=== PATIENT | male | born 1945 | race Caucasian/White ===

== ENCOUNTER → 2016-12-07 | Outpatient (CLI) | payer MEDICARE, BC ==
[~2016-12-07] MED LIST: ACETAMINOPHEN PO; ACETAMINOPHEN500 M3 PO; ALLERGY RELIEF10 M1 PO; AMLODIPINE BESY10 MG PO; ASPIRIN PO; ASPIRIN81 M2 PO; CARTIA XT PO; CENTURY CARDIO1 EACH PO; CHANTIX1 MG PO; CLOPIDOGREL75 MG PO; COZAAR25 MG PO; DARVOCET-N 1001 TAB; ELECTROLYTE PO; FERRO-TIME325 MG PO; FLOMAX0.4 M1 PO; GAS-X166 MG; HYDRALAZINE HCL25 MG PO; HYDROCODON-ACE1 EAC5 PO; LIPITOR20 MG PO; LOW DOSE ASPIRI81 M2 PO; MAG-OXIDE400 MG PO; MAGOX 400400 MG PO; MULTI VITAMIN1 EACH PO; NEXIUM; NORCO 10-325 TA1 TAB PO; NORVASC PO; NORVASC10 MG PO; PAIN RELIEVER500 M4 PO; PANTOPRAZOLE SO40 MG PO; PEG PO; PLAVIX PO; PRINIVIL40 MG PO; PROTONIX PO; SOD BICARBONATE PO; VICODIN PO; ZESTRIL40 MG PO
--- NOTE | ~2016-12-07 | US38 ---
[facility] A Service of [facility] & [facility] RADIOLOGY TEXT RESULTS PATIENT: CHRISTY MANZANO LOCATION: CNIV : 43 UNIT #: [id number] AGE: [address]: Jeferson Allen MD SEX: M ORDER DR: [id number] [facility] [address] [place], [place] [address] [id number] O MR#: [id number] Acc #: [id number] NAME: CHRISTY MANZANO : 1945 SEX: M STUDY DATE/TIME: 12/07/2016 10:36 UNIT: CNIV ROOM: STUDY DESCRIPTION: US Carotid W/Doppler Unilatera Attending Physician: Jeferson Allen M.D. Referring Physician: Jeferson Allen M.D. Ordering Physician: Jeferson Allen M.D. Primary Care Physician: Drake Mcdonald M.D. MEDICAL IMAGING REPORT This report is preliminary unless electronic signature is present EXAM Right carotid duplex scan date of examination 12/07/2016 HISTORY Recent right carotid endarterectomy. FINDINGS The right common carotid artery has no significant plaque. The right internal and external carotid arteries are patent without plaque. Peak systolic velocity in the mid right internal carotid artery is 88 cm/sec with an end diastolic velocity of 26 cm/sec. The ICA/CCA ratio on the right is 1.29. Peak systolic velocity in the right external carotid artery is 135 cm/sec. The right vertebral artery is patent with antegrade flow. IMPRESSION Normal examination of the right internal and external carotid artery. Dictated by... Kristian Henriquez M.D. THIS IS AN ELECTRONICALLY VERIFIED REPORT Kristian Henriquez M.D. at 12/07/2016 2:01 PM DAY/yumiko TD: 12/07/2016 13:48 JOB #: [id number] MEDICAL IMAGING REPORT Page 1 of 1 COPY
== END | disposition home or self-care (01) ==
LOC: CCAT 09:56
DX: I65.23 Occlusion and stenosis of bilateral carotid arteries (principal)
CPT/HCPCS: 93882

== ENCOUNTER → 2016-12-12 | Outpatient (CLI) | payer MEDICARE, BC | END | disposition home or self-care (01) | LOC: CSSDAY 10:29 | DX: N18.9 Chronic kidney disease, unspecified (principal); D63.1 Anemia in chronic kidney disease; Z79.899 Other long term (current) drug therapy | CPT/HCPCS: 96374; Q0138 ==

== ENCOUNTER → 2016-12-21 | Outpatient (CLI) | payer MEDICARE, BC | END | disposition home or self-care (01) | LOC: CSSDAY 10:26 | DX: N18.4 Chronic kidney disease, stage 4 (severe) (principal); D63.1 Anemia in chronic kidney disease | CPT/HCPCS: 96374; Q0138 ==

== ENCOUNTER 2017-01-07 04:24 | Emergency (ER) | payer MEDICARE, BC ==
[~2017-01-07 04:24] MED LIST changes: -ACETAMINOPHEN PO; -COZAAR25 MG PO; -LOW DOSE ASPIRI81 M2 PO; -NORVASC10 MG PO; -PROTONIX PO; -SOD BICARBONATE PO
[2017-03-20] MEDS ORDERED: NORVASC10 MG PO (08:00)
[2017-03-20] MEDS ORDERED: PROTONIX PO (08:02)
[2017-03-20] MEDS ORDERED: SOD BICARBONATE PO (08:40)
[2017-03-20] MEDS ORDERED: ACETAMINOPHEN PO (08:41)
[2017-03-20] MEDS ORDERED: LOW DOSE ASPIRI81 M2 PO (08:53)
[2017-03-20] MEDS ORDERED: COZAAR25 MG PO (08:54)
[2017-03-20] MEDS ORDERED: CLOPIDOGREL75 MG PO (08:54)
[2017-03-20] MEDS ORDERED: FLOMAX0.4 M1 PO (08:54)
== END 2017-01-07 06:44 | disposition home or self-care (01) ==
LOC: CED 04:24
DX: T82.838A Hemorrhage due to vascular prosthetic devices, implants and grafts, initial encounter (principal); M54.9 Dorsalgia, unspecified; G89.29 Other chronic pain; K21.9 Gastro-esophageal reflux disease without esophagitis; J44.9 Chronic obstructive pulmonary disease, unspecified; Z90.49 Acquired absence of other specified parts of digestive tract; F17.200 Nicotine dependence, unspecified, uncomplicated; Z88.8 Allergy status to other drugs, medicaments and biological substances; Z88.1 Allergy status to other antibiotic agents
CPT/HCPCS: 99283

== ENCOUNTER → 2017-03-13 | Outpatient (CLI) | payer MEDICARE, BC ==
[~2017-03-13] MED LIST changes: +ACETAMINOPHEN PO; +COZAAR25 MG PO; +LOW DOSE ASPIRI81 M2 PO; +NORVASC10 MG PO; +PROTONIX PO; +SOD BICARBONATE PO
== END | disposition home or self-care (01) ==
LOC: CSSDAY 11:23
DX: N18.4 Chronic kidney disease, stage 4 (severe) (principal); D63.1 Anemia in chronic kidney disease; Z79.899 Other long term (current) drug therapy
CPT/HCPCS: 36415; 36430; 86850; 86900; 86901; 86923; 96374; P9016; Q0138

== ENCOUNTER → 2017-03-20 | Outpatient (CLI) | payer MEDICARE, BC | END | disposition home or self-care (01) | LOC: CSSDAY 09:04 | DX: N18.4 Chronic kidney disease, stage 4 (severe) (principal); D63.1 Anemia in chronic kidney disease; Z79.899 Other long term (current) drug therapy | CPT/HCPCS: 96374; Q0138 ==